=== PATIENT | female | born 1990 | race Caucasian/White ===

== ENCOUNTER 2021-03-19 15:53 | Observation (INO) | payer MEDICAID, SELFPAY ==
[2021-03-19] VITALS (8 sets, daily range): BP systolic 101–132; BP diastolic 64–85; PULSE 74–94; RESP 20–26; TEMP 36.8; O2SAT 94–100; BMI 24.4
--- NOTE | ~2021-03-19 | CT_ITS ---
EXAMINATION: CT BRAIN W/O DATE: 03/19/2021 17:17 INDICATION: Overdose. Altered mental status. TECHNIQUE: Computed tomography (CT) of the head was performed without intravenous contrast. The dose- length product was 605.33 mGy-cm. COMPARISON: No prior studies for comparison. FINDINGS: Normal brain parenchymal volume for age. Normal davidson-white differentiation. No acute intrac ranial hemorrhage, infarction, mass or mass effect. No ventriculomegaly or midline shift. Midline sagittal images demonstrate a normal corpus callosum, c raniovertebral junction and sella turcica. Basilar cisterns are patent. There is mucosal thickening of the frontal and ethmoid sinuses. Mastoids are pneumatized. No depresse d skull fractures. IMPRESSION: 1. No acute intracranial abnormality. 2: Sinusitis. Reviewed, dictated and finalized at location A.
--- NOTE | ~2021-03-19 | XR_ITS ---
XR chest 1V portable 03/19/2021 17:10 Indication: Overdose on fentanyl Procedure: AP portable chest Comparison: No prior studies for comparison. Findings: There is asymmetric right perihilar airspace disease. No pleural effusion. Heart size lee ann l. No pneumothorax. No acute osseous abnormality. Impression: 1: Asymmetric right perihilar airspace disease which may represent pneumonia (? Aspiration) versus as ymmetric edema. Reviewed, dictated and finalized at location A. Impression: 1: Asymmetric right perihilar airspace disease which may represent pneumonia (? Aspiration) versus asymmetric edema.
--- NOTE | 2021-03-19 15:58 | ECG_ITS ---
Measurements Intervals [place] Rate: 92 P: 14 MS: 169 QRS: 61 QRSD: 76 T: 38 QT: 358 QTc: 444 Interpretive Statements SINUS RHYTHM BASELINE ARTIFACT- II, III, AVL, AVF, V1-V6 BORDERLINE ECG Electronically Signed On 03-20-2021 6:52:35 CDT by Kyle Caro D.O.
--- NOTE | 2021-03-19 16:31 | ED.GENADULT ---
HPI - General Adult General Chief complaint: Overdose Stated complaint: overdose Source: EMS Mode of arrival: EMS Limitations: altered mental status History of Present Illness HPI narrative: This is a 30 year old female with an unknown history who presents via EMS for possible overdose. EMS states patient was working with a client and they traveled overfrom [place]. EMS states patient 's client called 911 for an overdose. Patients was not responsive but she was breathing so PD gave her 4 mg narcan intranasally. EMS states she was more alert and she told them she used fentanyl. EMS reports there was a lot of fentanyl on the scene. SHe is unable to given any history. Related Data Home Medications Medication Instructions Recorded Confirmed No Home Medications 03/19/21 03/19/21 Review of Systems Review of Systems: ROS unobtainable: Yes unobtainable due to medical condition and unobtainable due to mental status PMFSH Past Medical History Medical History (Updated 03/19/21 @ 19:11 by Denisha Dwyer MD) Medical history unknown Surgical History Surgical History (Updated 03/19/21 @ 16:35 by Denisha Dwyer MD) Surgical history unknown Social History Social History Gender identity (if verbalized by the patient): Female Exam Const: Limitations: altered mental status Other: patient not following commands. She is mumbling, HENMT: Head: normocephalic and atraumatic Mouth: Yes Normal oral and palatal mucosa present, Yes lip normal, Yes oropharynx normal and Yes moist mucous membranes Eyes: Pupils: Equal, round and reactive pupils present EOM: EOMs intact bilaterally Resp: Effort & Inspection: normal respiratory effort and no retractions Auscultation: clear to auscultation bilaterally Cardio: Rate: regular rate Rhythm: regular rhythm Heart sounds: no murmurs GI: GI Palp: Yes Soft to palpation, No Tenderness to palpation present (GI) and No Guarding due to palpation present (GI) Auscultation: normal bowel sounds Neuro: General: moves all extremities and no focal motor deficits Extrem: General: no pedal edema Other: track hamlin to arms Course Reevaluation(s) Reevaluation #1: Patient has been breathing and appears to be sleeping. RR 20. She was given narcan which just made her move around more but she is still not able to have a conversation. She will be obs in ICU. Date: 03/19/21 Time: 17:45 Consultations Consultation #1: I Discussed case with Bonnie august who accepts patient to hospitalist service. She will be admitted to ICU Date: 03/19/21 Time: 17:58 Consultation #2: I spoke with Dr. Ornelas. I reviewed patient's lab, CT, xray and GCS 10. He accepts patient to ICU to watch due to likelihood of overdose. Her airway is patent with gag. He agrees with hold on antibiotics at this time for aspiration. Date: 03/19/21 Time: 18:05 Vital Signs Vital signs: Vital Signs Temperature 98.2 F 03/19/21 15:50 Pulse Rate 92 03/19/21 15:50 Respiratory Rate 20 03/19/21 15:50 Blood Pressure 126/85 03/19/21 15:50 Pulse Oximetry 94 03/19/21 15:50 Temperature 98.2 F 03/19/21 15:50 Pulse Rate 88 03/19/21 18:30 Respiratory Rate 22 H 03/19/21 18:30 Blood Pressure 116/76 03/19/21 18:30 Pulse Oximetry 95 03/19/21 17:58 Medical Decision Making Vital Signs Vital Signs: Vital Signs Temperature 98.2 F 03/19/21 15:50 Pulse Rate 92 03/19/21 15:50 Respiratory Rate 20 03/19/21 15:50 Blood Pressure 126/85 03/19/21 15:50 Pulse Oximetry 94 03/19/21 15:50 Temperature 98.2 F 03/19/21 15:50 Pulse Rate 88 03/19/21 18:30 Respiratory Rate 22 H 03/19/21 18:30 Blood Pressure 116/76 03/19/21 18:30 Pulse Oximetry 95 03/19/21 17:58 Lab Data Lab results reviewed: Yes I reviewed the patient's lab results. Result diagrams: 03/19/21 16:56 03/19/21 16:56 Labs: Lab Results 03/19/21 03/19/21 03/19/21 Adan
[2021-03-19 16:33] LABS: Alveolar/Arterial O2 Gradient 20.5 mmHg; Device ROOM AIR; Fractional Inspired Oxygen 21 %; Oxygen Content ABG 18.8 %vol (16.0-22.0); Oxygen Saturation ABG 97.4 % (95.0-100.0); Oxyhemoglobin 95.9 % THb (90.0-100.0); PCO2 ABG 33.3 mmHg (35.0-45.0); PO2 ABG 89.4 mmHg (80.0-100.0); PO2 FiO2 Ratio Arterial Blood 4.26 %; Site Drawn LEFT BRACHIAL; Total Hemoglobin 13.9 g/dL (12.0-18.0); pH ABG 7.475 (7.350-7.450)
[2021-03-19 17:02] LABS: Basophils Absolute Auto 0.1 K/mm3 (0.0-0.1); Basophils Percent Auto 0.8 % (0.2-1.2); Eosinophils Absolute Auto 0.3 K/mm3 (0-0.3); Hematocrit 38.2 % (37.0-47.0); Immature Granulocyte Absolute 0.01 K/mm3 (0.00-0.031); Immature Granulocyte Percent A 0.2 % (0-0.5); Lymphocytes Absolute Auto 2.92 K/mm3 (0.9-3.2); Lymphocytes Percent Auto 47.1 % (18.3-44.2); Mean Corpuscular Hemoglobin 28.9 pg (26-34); Mean Corpuscular Volume 84.9 fl (80-100); Mean Platelet Volume 9.5 fl (7.4-10.4); Monocytes Absolute Auto 0.6 K/mm3 (0.1-0.6); Monocytes Percent Auto 10.3 % (2.6-8.5); Neutrophils Absolute Auto 2.3 K/mm3 (1.3-6.7); Neutrophils Percent Auto 37.6 % (45.5-73.1); Platelet Count Result 241 k/mm3 (150-375); Red Cell Distribution Width 14.7 % (11.5-14.5); White Blood Count 6.2 K/mm3 (4.5-10.0)
[2021-03-19 17:17] LABS: Acetaminophen < 10 ug/mL (10-30); Ethanol < 10 mg/dL (<10); Salicylate < 1.0 mg/dL (2-20)
[2021-03-19 17:18] LABS: Partial Thromboplastin Time 28.3 SECONDS (22.3-36.8); Prothrombin Time 13.6 Seconds (11.1-14.7)
[2021-03-19 17:31] LABS: Alanine Aminotransferase 71 U/L (4-35); Albumin Level 4.5 g/dL (3.5-5.1); Alkaline Phosphatase 89 U/L (38-126); Anion Gap 10 mmol/L (8-16); Aspartate Amino Transferase 69 U/L (14-36); Bilirubin,Total 0.3 mg/dL (0.2-1.3); Blood Urea Nitrogen 15 mg/dL (7-17); Calcium 9.6 mg/dL (8.4-10.2); Carbon Dioxide 24 mmol/L (22-30); Chloride 106 mmol/L (98-107); Creatine Kinase 104 U/L (30-135); Estimated Glomerular Filt Rate > 60; Glucose 100 mg/dL (65-105); Magnesium 2.1 mg/dL (1.6-2.3); Potassium 3.7 mmol/L (3.4-5.0); Sodium 140 mmol/L (137-145)
[2021-03-19] MEDS: NALOXONE HCL INJ 2 MG/2 ML AMP IV PUSH (17:43)
[2021-03-19] MEDS: ONDANSETRON INJ 4 MG/2 ML VIAL IV PUSH (17:43)
[2021-03-19 17:47] LABS: Add Urine Microscopic? YES; Appearance Urine Cloudy (Clear); Bacteria Urine 1+ /hpf; Bilirubin Urine Negative (Negative); Blood Urine 1+ (Negative); Color Urine Amber (Yellow); Glucose Urine UA Negative (Negative); Ketones Urine Negative (Negative); Leukocyte Esterase Ur Negative LEU/UL (Negative); Mucus Urine Moderate /lpf; Nitrate Urine Negative (Negative); Protein Urine 1+ mg/dL (Negative); Specific Grav Ur 1.023 (1.001-1.035); Squamous Epithelial Cell Urine Many /hpf (Few); WBC Urine 0-3 /hpf
[2021-03-19 17:53] LABS: Glucose Point of Care 83 (65-105)
[2021-03-19] MEDS: SODIUM CHLORIDE 0.9% IV 1,000 ML 1000 ML (17:53)
[2021-03-19 17:59] LABS: Amphetamine Screen Urine Positive (Negative); Barbiturate Screen Urine Negative (Negative); Benzodiazepines Screen Urine Positive (Negative); Cannabinoid Screen Urine Negative (Negative); Cocaine Screen Urine Negative (Negative); Methadone Screen Urine Negative (Negative); Opiate Screen Urine Negative (Negative); Phencyclidine Screen Urine Negative (Negative)
--- NOTE | 2021-03-19 18:49 | ADMGEN ---
This patient, Marisa Yin, was admitted to Intensive Care Unit-6. Patient/family oriented to hospital policies and general routines including ID bracelet, bed and alarms, visiting hours, pain management, procedures, bathroom and other care routines, personal items, smoking policy, room service/diet, and visiting hours. Information on how to activate the Rapid Response Team has been discussed. Patient/Family are encouraged to report perceived risks to care and to ask questions if they do not understand what they are told or what they should do.
--- NOTE | 2021-03-19 18:53 | PC.NURSE ---
Patient was admitted to ICCU-06 r/t an unintentional overdose of Fentanyl. Unable to obtain medical history or general information from patient at this time r/t altered mental status and drowsiness.
--- NOTE | 2021-03-19 20:15 | PM.IMHP ---
H&P: HPI History of Present Illness Date/Time: 03/19/21 20:15 female patient who was brought into the emergency room for possible overdose. EMS reported that the patient was working with a client and they traveled from [place]. EMS stated that the patient's client called 911 for an overdose. The patient was not responsive but was breathing. So the police department gave her 4 mg of Narcan intranasally. She became more alert and told the police that she has fentanyl. I was reported that there was a lot of fentanyl on scene. She was unable to give history at that time. No acute intracranial abnormality. Sinusitis. Chest x-ray was read as asymmetric right perihilar airspace disease which may represent pneumonia aspiration versus asymptomatic edema. White count was normal. Patient's AST issues 69. ALT is 71. The patient was given nor can IV push, Zofran, and IV fluids. The patient had and I0 placed in the left leg. The patient was complaining of burning so I ordered lidocaine. The cross tie turner has been consulted the patient was placed in the intensive care unit. The patient is waking up someone answering some questions. She is complaining of having left leg pain from the IO. The patient is being admitted for observation on the date of service of 03/19/2021 Chief Complaint: Unresponsive Review of Systems Review of Systems: All systems reviewed & are unremarkable except as noted in HPI and below Constitutional: Constitutional: Reports as per HPI and Reports no additional constitutional complaints Eyes: Eyes: Reports as per HPI and Reports no additional eye complaints ENT: Reports system reviewed and no additional complaints, except as documented and Reports Normal hearing present Cardiovascular: Cardiovascular: Reports no additional cardiovascular complaints Respiratory: Respiratory: Reports no additional respiratory complaints and Reports no additional respiratory complaints Gastrointestinal: Gastrointestinal: Reports as per HPI and Reports no additional gastrointestinal complaints Musculoskeletal: Musculoskeletal: Reports no additional musculoskeletal complaints Integumentary/Breasts: Skin/Breast: Reports system reviewed and no additional complaints, except as docu and Reports as per HPI Neurologic: Reports system reviewed and no additional complaints, except as documented, Reports as per HPI and Reports Normal hearing present Psychiatric: Psychiatric: Reports no additional psychiatric complaints and Reports as per HPI Endocrine: Endocrine: Reports no additional endocrine complaints Hematologic/Lymphatic: Hematologic/Lymphatic: Reports no additional hematologic/lymphatic complaints Allergic/Immunologic: Allergic/Immunologic: Reports no additional allergic/immunologic complaints PMFSH Past Medical History Medical History (Updated 03/19/21 @ 19:11 by Denisha Dwyer MD) Medical history unknown Surgical History Surgical History (Updated 03/19/21 @ 20:27 by Bonnie Conley NP) H/O section X2 Family History Family History (Updated 03/19/21 @ 20:28 by Bonnie Conley NP) Unknown Family history unknown Social History Social History (Updated 03/19/21 @ 20:28 by Bonnie Conley NP) Social History: The patient stated that she does not smoke. The patient was positive for amphetamines and benzos. She is listed as a full code Gender identity (if verbalized by the patient): Female Meds Home Medications and Allergies Home Medications Medication Instructions Recorded Confirmed Type No Home Medications 03/19/21 03/19/21 History Vital Signs Vital Signs - 24 hr 03/19/21 15:50 03/19/21 17:21 03/19/21 17:58 Temperature 36.8 C Pulse Rate 92 83 94 Respiratory Rate 20 20 22 H Blood Pressure 126/85 129/77 101/64 Pulse Oximetry 94 99 95 03/19/21 18:07 03/19/21 18:30 Temperature Pulse Rate 74 88 Respiratory Rate 22 H 22 H Blood Pressure 119/85 116/76 Pulse Oxim
[2021-03-19] MEDS: LACTATED RINGERS 1,000 ML 125 ML IV CONT (20:23)
[2021-03-19 22:41] LABS: Lactic Acid Reflex 0.6 mmol/L (0.7-2.1)
[2021-03-20] VITALS (9 sets, daily range): BP systolic 117–131; BP diastolic 67–78; PULSE 80–108; RESP 13–21; TEMP 36.4–37.1; O2SAT 98–100
[2021-03-20 01:10] LABS: Glucose Point of Care 99 (65-105)
[2021-03-20] MEDS: LACTATED RINGERS 1,000 ML 125 ML IV CONT (04:01)
[2021-03-20 04:43] LABS: Basophils Percent Auto 0.5 % (0.2-1.2); Eosinophils Percent Auto 0.6 % (0-4.4); Hemoglobin 13.1 g/dL (12.0-15.0); Immature Granulocyte Absolute 0.01 K/mm3 (0.00-0.031); Immature Granulocyte Percent A 0.2 % (0-0.5); Lymphocytes Absolute Auto 2.18 K/mm3 (0.9-3.2); Lymphocytes Percent Auto 34.1 % (18.3-44.2); Mean Corpuscular HGB Conc 34.5 g/dl (32-36); Mean Corpuscular Hemoglobin 28.7 pg (26-34); Mean Corpuscular Volume 83.2 fl (80-100); Mean Platelet Volume 9.5 fl (7.4-10.4); Monocytes Absolute Auto 0.5 K/mm3 (0.1-0.6); Monocytes Percent Auto 7.2 % (2.6-8.5); Neutrophils Absolute Auto 3.7 K/mm3 (1.3-6.7); Neutrophils Percent Auto 57.4 % (45.5-73.1); Platelet Count Result 236 k/mm3 (150-375); Red Blood Count 4.57 M/mm3 (4.2-5.4); Red Cell Distribution Width 14.5 % (11.5-14.5); White Blood Count 6.4 K/mm3 (4.5-10.0)
[2021-03-20 04:55] LABS: Alanine Aminotransferase 60 U/L (4-35); Alkaline Phosphatase 91 U/L (38-126); Anion Gap 6 mmol/L (8-16); Aspartate Amino Transferase 58 U/L (14-36); Bilirubin,Total 0.7 mg/dL (0.2-1.3); Blood Urea Nitrogen 11 mg/dL (7-17); Calcium 8.6 mg/dL (8.4-10.2); Carbon Dioxide 23 mmol/L (22-30); Chloride 105 mmol/L (98-107); Estimated CRCL calculation 128 ml/min; Estimated Glomerular Filt Rate > 60; Glucose 92 mg/dL (65-105); Lipase 70 U/L (23-300); Magnesium 1.9 mg/dL (1.6-2.3); Sodium 134 mmol/L (137-145)
[2021-03-20 05:55] LABS: Thyroid Stimulating Hormone Reflex 0.595 uIU/mL (0.465-4.68)
--- NOTE | 2021-03-20 07:28 | PC.NURSE ---
03/20/21. 0200: patient states she does not want to list an emergency contact at this time
--- NOTE | 2021-03-20 09:02 | WPDCNINT ---
Assessment and Plan Assessment and plan (1) Drug overdose: Code(s): T50.901A - Poisoning by unspecified drugs, medicaments and biological substances, accidental (unintentional), initial encounter Status: Acute Assessment and Plan: Patient admitted to taking fentanyl, urine tox screen was positive for benzos and amphetamines. Patient did receive Narcan with some benefit. -continue IV fluids -patient awake and alert this morning. (2) Polysubstance abuse: Code(s): F19.10 - Other psychoactive substance abuse, uncomplicated Status: Acute Assessment and Plan: Patient has multiple track hamlin, did tell the police that she was taking fentanyl (3) Encephalopathy: Code(s): G93.40 - Encephalopathy, unspecified Status: Acute Assessment and Plan: Resolved -patient initially was less responsive, patient did respond to Narcan -this morning she is awake and alert and answers to questions. Additional Plan Discussed with patient updated with her condition and plan of care. Code status: Full code Critical care time spent: 43 minutes This dictation may have been done utilizing a voice recognition system. Attempts have been made to correct errors. However, there may be uncorrected grammatical, spelling, and recognition errors present. Due to a high probability of clinically significant, life threatening deterioration, the patient required my highest level of preparedness to intervene emergently and I personally spent this critical care time directly and personally managing the patient. This critical care time included obtaining a history; examining the patient; pulse oximetry; ordering and review of studies; arranging urgent treatment with development of a management plan; evaluation of patient's response to treatment; frequent reassessment; and discussions with other providers. It was exclusive of separately billable procedures and treating other patients and teaching time. Please see Assessment and Plan section and the rest of the note for further information on patient assessment and treatment Senior Supplier Quality Engineer Consult Note Consult date: 03/20/21 Time Seen: 07:07 Reason for consult: Fentanyl overdose HPI: Marisa Yin is a 30 year old female otherwise healthy female with no known medical history presented to the ED with possible fentanyl overdose. And that travels from [place], EMS was called by patient's client as she was unresponsive but was breathing. The police department give her 4 mg of Narcan intranasally and she did not respond to that, and telling the police that she had taken fentanyl. It was also reported that there was a lot of fentanyl on the scene. In the ER she was unable to give any history. CT head did not show any acute intracranial abnormalities except sinusitis. Chest x-ray showed asymmetric right perihilar airspace disease which may represent aspiration pneumonia verses asymptomatic edema. Patient had mild elevation in her LFTs. Urine tox screen was positive for amphetamine and benzos. In the ER patient gotten IO line placed in her left lower extremity. Patient was transferred to the ICU for further management. Patient seen and examined in the ICU, is awake, alert, answers to questions appropriately. Denies any chest pain, shortness of breath, abdominal pain, nausea vomiting. Does not want to have any breakfast at this time. Patient is hemodynamically stable, bradycardic with adequate urine output. LFTs are trending down Review of Systems Review of Systems: All systems reviewed & are unremarkable except as noted in HPI and below PMFSH Past Medical History Medical History (Updated 03/20/21 @ 09:18 by Nuno Hernandez MD) Medical history unknown Surgical History Surgical History (Updated 03/19/21 @ 20:27 by Bonnie Conley NP) H/O section X2 Family History Family History (Updated 03/19/21 @ 20:28 by Bonnie Conley NP) Unknown Family
[2021-03-20] MEDS: ONDANSETRON INJ 4 MG/2 ML VIAL IV PUSH (10:48)
--- NOTE | 2021-03-20 13:35 | PC.NURSE ---
This patient, Marisa Yin, was received from ICU 6 on 03/20/21 at 1335. Patient/family oriented to unit policies and routines
--- NOTE | 2021-03-20 13:42 | PC.NURSE ---
This patient, Marisa Yin, was transferred to [[id number] ] on 03/20/21 at 1330. Personal belongings sent with patient. Report given to [MAYURI Gonzales @ [phone] ]. Appropriate documentation sent with patient.
--- NOTE | 2021-03-20 14:27 | PM.IMPN ---
Progress Note: A&P Assessment and Plan (1) Drug overdose: Code(s): T50.901A - Poisoning by unspecified drugs, medicaments and biological substances, accidental (unintentional), initial encounter Status: Acute Assessment and Plan: Patient was positive for benzos and amphetamines. Patient was given narcan. Continue with IV fluids. The patient responds to painful stimuli. When we flush out the IO the patient response. She did respond to a couple questions but would not given any family history. 03/20/21 14:27 Patient is a 30-year-old female with history of fentanyl use daily and was found unresponsive patient was given Narcan and was brought emergency depart which did help, patient is positive amphetamine and benzodiazepines, patient is clinically stable, patient vitals are stable, will give clonidine 0.1 mg PO BID, will monitor overnight if remains clinically stable, will discharge patient in the morning. (2) Polysubstance abuse: Code(s): F19.10 - Other psychoactive substance abuse, uncomplicated Status: Acute Assessment and Plan: Patient has multiple track hamlin. The patient told police that she was using fentanyl. Subjective Date/time seen: 03/20/21 14:27 Patient was positive for benzos and amphetamines. Patient was given narcan. Continue with IV fluids. The patient responds to painful stimuli. When we flush out the IO the patient response. She did respond to a couple questions but would not given any family history. Patient is a 30-year-old female with history of fentanyl use daily and was found unresponsive patient was given Narcan and was brought emergency depart which did help, patient is positive amphetamine and benzodiazepines, patient is clinically stable, patient vitals are stable, will give clonidine 0.1 mg PO BID, will monitor overnight if remains clinically stable, will discharge patient in the morning. Review of Systems Review of Systems: All systems reviewed & are unremarkable except as noted in HPI and below Exam Narrative: Exam Narrative: Patient is comfortable, NAD HEENT: eyes are clear and none icteric LUNGS: Normal respiratory effort ABD: Not distant Lower extremities: no edema SKIN: nonjaundiced Neuro: grossly intact normal speech somewhat agitated. Objective Data Vital Signs Vital Signs: Vital Signs - 24 hr 03/19/21 15:50 03/19/21 17:21 03/19/21 17:58 Temperature 98.2 F Pulse Rate 92 83 94 Respiratory Rate 20 20 22 H Blood Pressure 126/85 129/77 101/64 Pulse Oximetry 94 99 95 03/19/21 18:07 03/19/21 18:30 03/19/21 20:00 Temperature Pulse Rate 74 88 93 Respiratory Rate 22 H 22 H Blood Pressure 119/85 116/76 Pulse Oximetry 03/19/21 21:15 03/19/21 22:00 03/20/21 00:00 Temperature Pulse Rate 89 88 92 Respiratory Rate 26 H 25 H 21 H Blood Pressure 131/83 132/84 131/74 Pulse Oximetry 99 100 100 03/20/21 02:00 03/20/21 04:00 03/20/21 06:00 Temperature 98.6 F 97.6 F Pulse Rate 83 81 81 Respiratory Rate 19 13 Blood Pressure 123/78 128/71 Pulse Oximetry 99 100 03/20/21 06:19 03/20/21 08:00 03/20/21 10:00 Temperature 97.6 F Pulse Rate 96 82 82 Respiratory Rate 21 H 21 H Blood Pressure 131/77 117/67 Pulse Oximetry 100 100 Intake/Output Intake/Output: Intake & Output 03/17/21 03/18/21 03/19/21 03/20/21 23:59 23:59 23:59 23:59 Intake Total 1000 1352 Output Total 1700 Balance 1000 -348 Meds/Results Medications: Active Medications Generic Name Dose Route Start Last Admin Trade Name Freq PRN Reason Stop Dose Admin Clonidine HCl 0.1 mg 03/20/21 11:30 Clonidine Hcl 0.1 Mg Tablet PO Q12HR [facility] Enoxaparin Sodium 40 mg 03/20/21 09:00 03/20/21 08:44 Enoxaparin 40 Mg/0.4 Ml Syringe SUB-Q Not Given DAILY TITA Acetaminophen 1,000 mg in 100 mls @ 400 mls/hr 03/19/21 18:07 Ofirmev 1,000 Mg Ivpb IVPB 03/20/21 18:08 Q6H PRN Mild Pain (1-3) or Fever Ondan
--- NOTE | 2021-03-20 17:35 | PC.NURSE ---
States does not wish to stay at hospital, patient wants to sign out MD ANDREW (Dr. Verde) notified, patient a/o x3 answering appropriately.
--- NOTE | 2021-03-22 08:46 | P.DS_ITS ---
DS: Admitting Diagnosis Admitting Diagnosis Admitting Diagnosis: Unresponsive DS: Discharge Diagnosis Discharge Diagnosis (1) Drug overdose: Code(s): T50.901A - Poisoning by unspecified drugs, medicaments and biological substances, accidental (unintentional), initial encounter Status: Acute Assessment and Plan: Patient was positive for benzos and amphetamines. Patient was given narcan. Continue with IV fluids. The patient responds to painful stimuli. When we flush out the IO the patient response. She did respond to a couple questions but would not given any family history. 03/20/21 14:27 Patient is a 30-year-old female with history of fentanyl use daily and was found unresponsive patient was given Narcan and was brought emergency depart which did help, patient is positive amphetamine and benzodiazepines, patient is clinically stable, patient vitals are stable, will give clonidine 0.1 mg PO BID, will monitor overnight if remains clinically stable, will discharge patient in the morning. (2) Polysubstance abuse: Code(s): F19.10 - Other psychoactive substance abuse, uncomplicated Status: Acute Assessment and Plan: Patient has multiple track hamlin. The patient told police that she was using fentanyl. DS: Summary Hospital Course Reason for hospitalization: female patient who was brought into the emergency room for possible overdose. EMS reported that the patient was working with a client and they traveled from [place]. EMS stated that the patient's client called 911 for an overdose. The patient was not responsive but was breathing. So the police department gave her 4 mg of Narcan intranasally. She became more alert and told the police that she has fentanyl. I was reported that there was a lot of fentanyl on scene. She was unable to give history at that time. No acute intracranial abnormality. Sinusitis. Chest x-ray was read as asymmetric right perihilar airspace disease which may represent pneumonia aspiration versus asymptomatic edema. White count was normal. Patient's AST issues 69. ALT is 71. The patient was given nor can IV push, Zofran, and IV fluids. The patient had and I0 placed in the left leg. The patient was complaining of burning so I ordered lidocaine. The funeral director and embalmer has been consulted the patient was placed in the intensive care unit. The patient is waking up someone answering some questions. She is complaining of having left leg pain from the IO. The patient is being admitted for observation on the date of service of 03/19/2021 Hospital Course: Patient left AMS on 03/20/21 Time Spent with Patient Time attestation: Total time spent providing and/or coordinating discharge services: Discharge Plan Discharge Consulting providers: Yuan Neville ; Kenneth Sanchez ; Bonnie Conley ; Sy Vivar ; Kyle Caro ; Nuno Hernandez Patient Disposition: Left Against Medical Advice Patient Instructions: How to Stop Smoking (DC) Discharge Medications: No Action No Home Medications RF: 0 Date of admission: 03/19/21 18:08 Primary Care Provider: PHYSICIAN,FEDERAL JUDICIAL LAW CLERK Admitting Provider: Carmela Hamilton Attending physician on admission: Dipti Verde Condition: Guarded Prognosis Quality VTE Prophylaxis VTE prophylaxis: pharmacologic ordered
== END 2021-03-20 17:35 | disposition left against medical advice (07) ==
LOC: ANHED 16:29 → ANHICU 19:11 → ANH3MEDSUR 03-20 14:46 → ANHICU 03-23 09:46
PROVIDERS: Nurse Practitioner; Admitting Provider Hospitalist; Emergency Provider General Practice; Visit Provider Family Medicine
DX: T40.411A Poisoning by fentanyl or fentanyl analogs, accidental (unintentional), initial encounter (principal); F19.10 Other psychoactive substance abuse, uncomplicated
CPT/HCPCS: 36415; 36600; 70450; 71045; 80053; 80307; 81001; 81025; 82550; 82805; 82948; 83605; 83690; 83735; 84443; 85025; 85610; 85730; 93005; 96361; 96374; 96375; 99285; G0378; J2001; J2310; J2405; J7030; J7120